=== PATIENT | male | born 1990 | race Two or more races ===

== ENCOUNTER 2024-03-04 09:29 | Emergency (ER) | payer MEDICAID, SELFPAY ==
[2024-03-04 09:56] VITALS: BP 118/73; PULSE 103; RESP 21; TEMP 37; O2SAT 96; BMI 15.3
--- NOTE | 2024-03-04 10:05 | PD.EDRME ---
Rapid Medical Screening Exam RME Arrival date/time: 03/04/24 09:29 34-year-old male on lithium with caregiver at bedside presents emergency department reporting was sent by primary care provider due to abnormal labs. Patient also endorses nausea vomiting and diarrhea since this past Wednesday. Chief Complaint: Nausea/Vomiting/Diarrhea Vital signs: Vital Signs Temperature 98.6 F 03/04/24 09:56 Pulse Rate 103 H 03/04/24 09:56 Respiratory Rate 21 H 03/04/24 09:56 Blood Pressure 118/73 03/04/24 09:56 Pulse Oximetry (%) 96 03/04/24 09:56 Oxygen Delivery Method Room Air 03/04/24 09:56 Vital signs reviewed by provider: Yes
[2024-03-04 10:29] LABS: Basophils % (Auto) 0 % (0-2.5); Eosinophils % (Auto) 0 % (0-10); Hematocrit 39.9 % (41.0-53.0); Hemoglobin 13.5 g/dL (13.5-16.0); Immature Granulocytes % (Auto) 0 % (0-0); Immature Granulocytes Auto 0.03 Thou/mm3 (0.00-0.00); Lymphocytes # (Auto) 0.4 Thou/mm3 (1.0-4.8); Lymphocytes % (Auto) 4 % (10-50); Mean Corpuscular HGB Conc 33.8 g/dl (31.0-37.0); Mean Corpuscular Hemoglobin 31.6 pg (25.0-35.0); Mean Corpuscular Volume 93 fL (80-100); Monocytes # (Auto) 0.6 Thou/mm3 (0.0-0.8); Monocytes % (Auto) 6 % (0-12); Neutrophils # (Auto) 8.1 Thou/mm3 (1.8-7.7); Neutrophils % (Auto) 89 % (37-80); Nucleated Red Blood Cell % 0 /100 WBC (0); Platelet Count 232 Thou/mm3 (140-440); RDW Standard Deviation 45.4 fL (35.1-43.9); Red Blood Count 4.27 Miln/mm3 (4.50-5.90); White Blood Count 9.1 Thou/mm3 (3.8-10.6)
[2024-03-04] MEDS: ONDANSETRON ODT 4 MG TABRAP PO (10:32)
[2024-03-04 10:41] LABS: Alanine Aminotransferase 45 U/L (10-49); Albumin, Serum 4.3 gm/dL (3.5-5.0); Alkaline Phosphatase 82 U/L (46-116); Anion Gap 5 (7-16); Aspartate Amino Transferase 55 U/L (0-34); BUN/Creatinine Ratio 14 Ratio (12-20); Bilirubin,Total 0.6 mg/dL (0.3-1.2); Blood Urea Nitrogen 11 mg/dL (9-23); Calcium 9.6 mg/dL (8.3-10.6); Calcium (Corrected) 9.6 mg/dL (8.5-10.1); Carbon Dioxide 22.7 mMol/L (20.0-31.0); Chloride 107 mMol/L (98-107); Creatinine (Component) 0.8 mg/dL (0.6-1.3); Estimated Creatinine Clearance 75.4 mL/min (>60); Globulin 2.2 gm/dL (2.3-3.5); Glucose 107 mg/dL (74-106); Lipase 31 U/L (12-53); Osmolality,Calculated 269 (275-295); Potassium 3.2 mMol/L (3.4-5.1); Sodium 135 mMol/L (136-145); Total Protein 6.5 gm/dL (5.7-8.2); eGFR > 60 See Note
[2024-03-04 10:47] LABS: Lithium 1.06 mEq/L (1.00-1.20)
[2024-03-04 11:50] VITALS: BP 135/91; PULSE 84; RESP 17; TEMP 36.8; O2SAT 97
[2024-03-04 12:10] LABS: Collection Type, Urine Clean Catch; Squamous Epithelial Cell,Urine 0 /hpf (0-5)
--- NOTE | 2024-03-04 12:17 | PD.EDRECHK ---
ED Recheck Abnl Lab Rx-RME/HPI General Chief Complaint: Nausea/Vomiting/Diarrhea Stated Complaint: DIARRHEA AND VOMITING W/ABNORMAL LABS Time Seen by Provider: 03/04/24 12:12 Arrival date/time: 03/04/24 09:29 RME / HPI RME / HPI narrative: 34-year-old male on lithium with caregiver at bedside presents emergency department reporting was sent by primary care provider due to abnormal labs. Patient also endorses nausea vomiting and diarrhea since this past Wednesday. No fever was noted no abdominal pain was noted no cough was noted no other complaints noted. Denies any ill contacts. Related Data Home Medications ?Medication ?Instructions ?Recorded ?Confirmed clonazepam 1 mg tablet (Klonopin) 1 mg PO 1500 #0 tabs 12/25/14 clonidine HCl 0.1 mg tablet 0.2 mg PO BID #0 tabs 12/25/14 risperidone 1 mg tablet (Risperdal) 2 mg PO TID #0 tabs 12/25/14 divalproex 500 mg tablet,extended 500 mg PO QDAY 01/09/18 release 24 hr mirtazapine 30 mg tablet 30 mg PO QDAY 01/09/18 Previous Rx's ?Medication ?Instructions ?Recorded ondansetron HCl 4 mg tablet 4 mg PO Q8H PRN nausea and 03/04/24 vomiting 5 days #20 tabs Allergies Allergy/AdvReac Type Severity Reaction Status Date / Time No Known Allergies Allergy Verified 03/04/24 09:32 Review of Systems Review of Systems Narrative Review of Systems: Review of system reviewed and within normal limits except mentioned in HPI ED Exam Narrative Physical exam: VITAL SIGNS: Reviewed. GENERAL APPEARANCE: Alert and interactive, follows commands, no acute distress, HEAD AND FACE: Non-traumatic. ENT: PERRL, pink conjunctivitis, eyelid no trauma, Mucous membrane dry NECK: Supple, nontender, no nuchal rigidity. CHEST: No tenderness, no crepitus, no paradoxical movement, no retractions. LUNGS: Clear, well ventilated, symmetric, no rales, no wheezing, no ronchi, no stridor, good breath sounds bilaterally. HEART: Regular rate, regular rhythm, no murmur, no gallops. ABDOMEN: Soft, positive bowel sounds, nondistended, no guarding, nontender, no rebound, no masses, RECTAL: Deferred. GENITAL: Deferred. NEUROLOGICAL: Gross motor function intact sensory function intact, Appropriate for age. MUSCULOSKELETAL: low back nontender, full range of motion. EXTREMITIES: Nontender, full range of motion. SKIN: Color pink, dry, no rash, no lacerations, no abrasions, no contusions. LYMPHATICS: Deferred. Course Quality Measures none Orders Category Date Time Status CBC Stat Lab 03/04/24 10:17 Completed CMP [Comprehensive Metabolic Panel] Stat Lab 03/04/24 10:17 Completed Lipase Stat Lab 03/04/24 10:17 Completed [place] Stat Lab 03/04/24 10:17 Completed Urinalysis, C/S if Indicated Stat Lab 03/04/24 11:52 Completed Urine Culture Stat Lab 03/04/24 11:52 Received Famotidine Inj [Pepcid Inj] Med 03/04/24 12:16 Discontinued 20 mg IVP X1 ONE Metoclopramide Inj [Reglan Inj] Med 03/04/24 12:17 Discontinued 10 mg IVP X1 ONE Ondansetron Odt [Zofran Odt] Med 03/04/24 10:24 Discontinued 4 mg PO X1 ONE Potassium Chloride [K-Dur] Med 03/04/24 12:16 Discontinued 40 meq PO X1 ONE Sodium Chloride 0.9% 1000 ml [Ns] 1,000 ml Med 03/04/24 12:16 Discontinued IV 999 mls/hr Vital Signs Vital signs: Vital Signs Temperature 98.6 F 03/04/24 09:56 Pulse Rate 103 H 03/04/24 09:56 Respiratory Rate 21 H 03/04/24 09:56 Blood Pressure 118/73 03/04/24 09:56 Pulse Oximetry (%) 96 03/04/24 09:56 Oxygen Delivery Method Room Air 03/04/24 09:56 Recheck / Abnormal Lab / Rx MDM Narrative MDM Narrative:: Patient's laboratory workup all came back unremarkable except for potassium 3.2. Potassium replacement was done in the emergency room. Patient also given Pepcid IV, IV fluids for hydration, Reglan and Zofran. Results discussed with them patient and caregiver. Patient was noted to to be vomiting in the ED. Patient is tolerating p.o. fluids Patient data External records reviewed:: None Clinical information provided by:: none Social determinants that could affect healthcare access:: none Patient has the following chronic illnesses:: Seizure disorder, mental disorder How is presenting disease/condition affected by chronic disease/condition?: uneffected by Evaluation data The following diagnostics were reviewed and interpreted by me:: lab results Lab and/or radiology exams considered but not ordered:: None Interpretation Summary: Laboratory workup all came back unremarkable except for potassium of 3.2. [place] level is normal Medications / Prescriptions Medications or Prescriptions considered but not ordered:: None Medication administrations:: Medication Administration History Discontinued Medications Famotidine (Famotidine Inj 10 Mg/Ml Vial 2 Ml) 20 mg IVP X1 ONE Stop: 03/04/24 12:17 Last Admin: 03/04/24 12:52 Dose: 20 mg Documented By: GRACIE Sodium Chloride (Ns) 1,000 mls @ 999 mls/hr IV .Q1H1M ONE Stop: 03/04/24 13:16 Last Admin: 03/04/24 12:53 Dose: 999 mls/hr Documented By: GRACIE Metoclopramide HCl (Metoclopramide Inj 5 Mg/Ml Vial 2 Ml) 10 mg IVP X1 ONE; Protocol Stop: 03/04/24 12:18 Last Admin: 03/04/24 12:53 Dose: 10 mg Documented By: GRACIE Ondansetron HCl (Ondansetron Odt 4 Mg Tabrap) 4 mg PO X1 ONE; Protocol Stop: 03/04/24 10:25 Last Admin: 03/04/24 10:32 Dose: 4 mg Documented By: LEATHA Potassium Chloride (Potassium Chloride 20 Meq Tabcr) 40 meq PO X1 ONE Stop: 03/04/24 12:17 Last Admin: 03/04/24 13:05 Dose: 40 meq Documented By: GRACIE Potassium replacement, Zofran, Reglan, IV fluids and Pepcid Consultations Consultation(s) initiated? (list below): No Diagnosis Recheck Differential Diagnosis: other (Dehydration, nausea and vomiting, gastroenteritis) Most likely diagnosis given after review of the tests above:: Nausea and vomiting Admission Indicated Admission indicated?: not indicated Admission Request Was there a request for admission?: No Disposition Plan Disposition Plan: Discharge Discharge Attestation Discharge Attestation: The patient and all family members were given an opportunity to ask questions and understood the discharge instructions. Discharge instructions specifically effects, indications for sooner follow up or return to the emergency department, and the expected course of current diagnosis. Patient condition: Stable Discharge Plan Plan Patient Disposition: HOME (Self Care) Disposition Comment: stable Prescriptions/Referrals Prescriptions/Med Rec: New ondansetron HCl 4 mg tablet 4 mg PO Q8H PRN (Reason: nausea and vomiting) 5 Days Qty: 20 0RF No Action divalproex 500 mg tablet extended release 24 hr 500 mg PO QDAY mirtazapine 30 mg tablet 30 mg PO QDAY clonidine HCl 0.1 MG tablet 0.2 mg PO BID Qty: 0 clonazepam [Klonopin] 1 MG tablet 1 mg PO 1500 Qty: 0 risperidone [Risperdal] 1 MG tablet 2 mg PO TID Qty: 0 Referrals: Escobar Burgos MD [Primary Care Provider] - In 1 week Problem List Clinical Impression: Nausea & vomiting Patient/Caregiver Discharge Instructions Discharge Activity: activity as tolerated Education Materials: Nausea Vomit Control Additional Instructions: Thank you for the opportunity for serving you today. You are stable for discharged . You are advised to: Follow-up with your PCP in 1 to 2 days Return to ED for worsening of symptoms Increase oral fluids Take medication as prescribed Print Language: Uzbek Stand Alone Forms: Patricia Award Info., Patient Portal Info Letter Attestation Attestation The patient was seen by the midlevel practitioner. I, the co-signing physician, was present during the entire ER visit. While I did not physically examine the patient, I was available for consultation as needed.
[2024-03-04 12:33] LABS: Bilirubin,Urine Negative (Negative); Blood,Urine Negative (Negative); Clarity,Urine Clear (Clear/Hazy); Color,Urine Lt-Yellow (Lt Yel-Yel); Glucose, Urine Negative (Negative); Ketones,Urine Negative (Negative); Leukocyte Esterase,Urine Negative (Negative); Nitrite,Urine Positive (Negative); PH,Urine 6.5 (5.0-7.0); Protein,Urine Negative (Neg - Trace); RBC,Urine 2 /hpf (0-3); Specific Gravity,Urine 1.008 (1.001-1.035); Urobilinogen,Urine Negative mg/dL (0.0-1.0); WBC,Urine 5 /hpf (0-5)
[2024-03-04 12:36] LABS: Bacteria,Urine 1+; Culture Indicated,Urine Yes
[2024-03-04] MEDS: FAMOTIDINE INJ 10 MG/ML VIAL 2 ML 20 MG IVP (12:52)
[2024-03-04] MEDS: SODIUM CHLORIDE 0.9% 1000 ML 1,000 ML 999 ML IV (12:53)
[2024-03-04] MEDS: METOCLOPRAMIDE INJ 5 MG/ML VIAL 2 ML 10 MG IVP (12:53)
[2024-03-04] MEDS: POTASSIUM CHLORIDE 20 mEq TABCR 40 MEQ PO (13:05)
== END 2024-03-04 14:14 | disposition home or self-care (01) ==
PROVIDERS: Emergency Provider Emergency Medicine; PCP Family Medicine
DX: R11.2 Nausea with vomiting, unspecified (principal)
CPT/HCPCS: 36415; 80053; 80178; 81001; 83690; 85025; 87086; 96374; 96375; 99284; J2765; J3490; J7030; Q0162; A9270

== ENCOUNTER 2024-08-11 15:52 | Emergency (ER) | payer MEDICAID, SELFPAY ==
[2024-08-11 16:04] VITALS: BP 104/69; PULSE 80; RESP 20; TEMP 36.6; O2SAT 97
--- NOTE | 2024-08-11 16:09 | XR_ITS ---
Examination: PA lateral chest 2 views Technique: Upright PA lateral chest 2 views Exam date and time: September 10, 2024 1722 hrs. Indications: Chest pain shortness of breath 6 days Findings: Mild pneumonia in the anteromedial segment right lower lobe, best depicted on the lateral view Normal heart size Left lung clear Impression: Early pneumonia anteromedial segment right lower lobe
--- NOTE | 2024-08-11 16:09 | PD.EDRME ---
Rapid Medical Screening Exam RME Arrival date/time: 08/11/24 15:52 34-year-old male presents to the emergency department today with caregiver reports patient has been more fatigued than usual also reports cough congestion and sore throat has recently been on antibiotics for strep throat Chief Complaint: Flu Like Symptoms Vital signs: Vital Signs Temperature 97.9 F 08/11/24 16:04 Pulse Rate 80 08/11/24 16:04 Respiratory Rate 20 08/11/24 16:04 Blood Pressure 104/69 08/11/24 16:04 Pulse Oximetry (%) 97 08/11/24 16:04 Oxygen Delivery Method Room Air 08/11/24 16:04
[2024-08-11 16:34] LABS: Basophils % (Auto) 0 % (0-2.5); Eosinophils # (Auto) 0.1 Thou/mm3 (0.0-0.5); Eosinophils % (Auto) 2 % (0-10); Hematocrit 45.6 % (41.0-53.0); Hemoglobin 15.4 g/dL (13.5-16.0); Immature Granulocytes % (Auto) 0 % (0-0); Immature Granulocytes Auto 0.02 Thou/mm3 (0.00-0.00); Lymphocytes % (Auto) 16 % (10-50); Mean Corpuscular HGB Conc 33.8 g/dl (31.0-37.0); Mean Corpuscular Volume 89 fL (80-100); Monocytes # (Auto) 0.4 Thou/mm3 (0.0-0.8); Monocytes % (Auto) 6 % (0-12); Neutrophils # (Auto) 4.6 Thou/mm3 (1.8-7.7); Neutrophils % (Auto) 76 % (37-80); Nucleated Red Blood Cell % 0 /100 WBC (0); Platelet Count 175 Thou/mm3 (140-440); RDW Standard Deviation 41.9 fL (35.1-43.9); Red Blood Count 5.13 Miln/mm3 (4.50-5.90)
[2024-08-11 16:53] LABS: Alanine Aminotransferase 13 U/L (10-49); Albumin, Serum 4.3 gm/dL (3.5-5.0); Albumin/Globulin Ratio 1.8 (1.2-2.2); Alkaline Phosphatase 85 U/L (46-116); Anion Gap 8 (7-16); Aspartate Amino Transferase 15 U/L (0-34); BUN/Creatinine Ratio 15 Ratio (12-20); Bilirubin,Total 0.2 mg/dL (0.3-1.2); Blood Urea Nitrogen 12 mg/dL (9-23); Calcium 9.2 mg/dL (8.3-10.6); Calcium (Corrected) 9.2 mg/dL (8.5-10.1); Carbon Dioxide 22.7 mMol/L (20.0-31.0); Chloride 112 mMol/L (98-107); Creatinine (Component) 0.8 mg/dL (0.6-1.3); Globulin 2.4 gm/dL (2.3-3.5); Glucose 60 mg/dL (74-106); Osmolality,Calculated 282 (275-295); Potassium 3.6 mMol/L (3.4-5.1); Sodium 143 mMol/L (136-145); Total Protein 6.7 gm/dL (5.7-8.2); eGFR > 60 See Note
[2024-08-11 17:20] LABS: Strep A Rapid Negative (Negative)
[2024-08-11 17:46] LABS: Collection Type, Urine Clean Catch
[2024-08-11 18:00] LABS: Amphetamine/Methamp Scrn,U Negative (Negative); Barbiturate Screen,Urine Negative (Negative); Benzodiazepines Screen,Urine Negative (Negative); Benzoylecgonine Screen, Ur Negative (Negative); Fentanyl Screen,Urine Negative (Negative); Opiate Screen,Urine Negative (Negative); THC Screen,Urine Negative (Negative)
--- NOTE | 2024-08-11 18:23 | PD.EDURI ---
Upper Respiratory Inf. RME/HPI General Chief Complaint: Flu Like Symptoms Stated Complaint: SICK X6 DAYS Time Seen by Provider: 08/11/24 17:53 Arrival date/time: 08/11/24 15:52 RME / HPI RME / HPI Narrative: 34-year-old male presents to the emergency department today with caregiver reports patient has been more fatigued than usual also reports cough congestion and sore throat has recently been on antibiotics for strep throat. Patient was also noted to be coughing more than usual. Denies any other complaints no medication was taken prior to arrival. Related Data Home Medications ?Medication ?Instructions ?Recorded ?Confirmed clonazepam 1 mg tablet (Klonopin) 1 mg PO 1500 #0 tabs 12/25/14 clonidine HCl 0.1 mg tablet 0.2 mg PO BID #0 tabs 12/25/14 risperidone 1 mg tablet (Risperdal) 2 mg PO TID #0 tabs 12/25/14 divalproex 500 mg tablet,extended 500 mg PO QDAY 01/09/18 release 24 hr mirtazapine 30 mg tablet 30 mg PO QDAY 01/09/18 Previous Rx's ?Medication ?Instructions ?Recorded levofloxacin 500 mg tablet 500 mg PO QDAY 7 days #7 tabs 08/11/24 Allergies Allergy/AdvReac Type Severity Reaction Status Date / Time No Known Allergies Allergy Verified 08/11/24 15:54 Review of Systems Review of Systems Narrative Review of Systems: Review of system reviewed and within normal limits except mentioned in HPI ED Exam Narrative Physical exam: VITAL SIGNS: Reviewed. GENERAL APPEARANCE: Alert and interactive, follows commands, no acute distress, HEAD AND FACE: Non-traumatic. ENT: PERRL, pink conjunctivitis, eyelid no trauma, Mucous membrane moist. NECK: Supple, nontender, no nuchal rigidity. CHEST: No tenderness, no crepitus, no paradoxical movement, no retractions. LUNGS: Clear, well ventilated, symmetric, no rales, no wheezing, no ronchi, no stridor, good breath sounds bilaterally. HEART: Regular rate, regular rhythm, no murmur, no gallops. ABDOMEN: Soft, positive bowel sounds, nondistended, no guarding, nontender, no rebound, no masses, RECTAL: Deferred. GENITAL: Deferred. NEUROLOGICAL: Gross motor function intact sensory function intact, Appropriate for age. MUSCULOSKELETAL: low back nontender, full range of motion. EXTREMITIES: Nontender, full range of motion. SKIN: Color pink, dry, no rash, no lacerations, no abrasions, no contusions. LYMPHATICS: Deferred. Course Quality Measures none Orders Category Date Time Status Bedside COVID-19 Antigen Test NOW Care 08/11/24 16:09 Active Bedside Influenza A&B Antigen Test NOW Care 08/11/24 16:09 Completed XR chest 2V Stat Exams 08/11/24 16:09 Completed CBC Stat Lab 08/11/24 16:24 Completed CMP [Comprehensive Metabolic Panel] Stat Lab 08/11/24 16:24 Completed Drug Screen,Urine Stat Lab 08/11/24 17:34 Completed Strep A Rapid Stat Lab 08/11/24 16:13 Completed UA, C/S IF [Urinalysis, C/S if Indicated] Stat Lab 08/11/24 17:33 Received Levofloxacin [Levaquin] Med 08/11/24 18:21 Once 500 mg PO X1 ONE Vital Signs Vital signs: Vital Signs Temperature 97.9 F 08/11/24 16:04 Pulse Rate 80 08/11/24 16:04 Respiratory Rate 20 08/11/24 16:04 Blood Pressure 104/69 08/11/24 16:04 Pulse Oximetry (%) 97 08/11/24 16:04 Oxygen Delivery Method Room Air 08/11/24 16:04 Upper Respiratory Infection MDM Narrative MDM Narrative:: 34-year-old male presents to the emergency department today with caregiver reports patient has been more fatigued than usual also reports cough congestion and sore throat has recently been on antibiotics for strep throat. Patient was also noted to be coughing more than usual. Denies any other complaints no medication was taken prior to arrival. CBC showed no leukocytosis. CMP unremarkable. Tested negative for drug toxicity, blood is strep negative chest x-ray showed Early pneumonia anteromedial segment right lower lobe Patient received Levaquin p.o. in the emergency room. 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 Social determinants that could affect healthcare access:: none Patient has the following chronic illnesses:: Mental retardation How is presenting disease/condition affected by chronic disease/condition?: uneffected by Evaluation data The following diagnostics were reviewed and interpreted by me:: lab results and radiology exam(s) Lab and/or radiology exams considered but not ordered:: None see results [facility] Interpretation Summary: See results in MDM Medications / Prescriptions Medications or Prescriptions considered but not ordered:: None Medication administrations:: Medication Administration History Levofloxacin (Levofloxacin 250 Mg Tablet) 500 mg PO X1 ONE Stop: 08/11/24 18:22 Levaquin Consultations Consultation(s) initiated? (list below): No Diagnosis Upper Respiratory Differential Diagnosis: upper respiratory infection and viral infection Most likely diagnosis given after review of the tests above:: Pneumonia Admission Indicated Admission indicated?: not indicated Explain why admission is indicated or not indicated:: Stable Admission Request Was there a request for admission?: No Disposition Plan Disposition Plan: Discharge Discharge Attestation Discharge Attestation: The patient and all family members were given an opportunity to ask questions and understood the discharge instructions. Discharge instructions specifically effects, indications for sooner follow up or return to the emergency department, and the expected course of current diagnosis. Patient condition: Stable Discharge Plan Plan Patient Disposition: HOME (Self Care) Disposition Comment: Stable Prescriptions/Referrals Prescriptions/Med Rec: New levofloxacin 500 mg tablet 500 mg PO QDAY 7 Days Qty: 7 0RF No Action divalproex 500 mg tablet extended release 24 hr 500 mg PO QDAY mirtazapine 30 mg tablet 30 mg PO QDAY clonidine HCl 0.1 MG tablet 0.2 mg PO BID Qty: 0 clonazepam [Klonopin] 1 MG tablet 1 mg PO 1500 Qty: 0 risperidone [Risperdal] 1 MG tablet 2 mg PO TID Qty: 0 Referrals: Kiana Burgos MD [Primary Care Provider] - In 1 week Problem List Clinical Impression: Pneumonia Patient/Caregiver Discharge Instructions Discharge Activity: activity as tolerated Education Materials: What Is Pneumonia? Additional Instructions: Thank you for the opportunity for serving you today. You are stable for discharged . You are advised to: Follow-up with your PCP in 1 to 2 days Return to ED for worsening of symptoms Increase oral fluids Take medication as prescribed Print Language: Yoruba Stand Alone Forms: Patricia Award Info., Patient Portal Info Letter PA/COMPUTATIONAL SCIENTIST Supervising Physician ROSA/LOULOU Supervising Physician: MD Tiffanie
[2024-08-11 19:09] LABS: Bilirubin,Urine Negative (Negative); Blood,Urine Negative (Negative); Clarity,Urine Clear (Clear/Hazy); Color,Urine Lt-Yellow (Lt Yel-Yel); Glucose, Urine Negative (Negative); Hyaline Casts,Urine 1 /hpf (0-1); Ketones,Urine Negative (Negative); Leukocyte Esterase,Urine Positive (Negative); Nitrite,Urine Negative (Negative); Protein,Urine Negative (Neg - Trace); RBC,Urine 1 /hpf (0-3); Specific Gravity,Urine 1.023 (1.001-1.035); Squamous Epithelial Cell,Urine < 1 /hpf (0-5); Urobilinogen,Urine Negative mg/dL (0.0-1.0); WBC,Urine 16 /hpf (0-5)
[2024-08-11 19:10] LABS: Culture Indicated,Urine Yes
[2024-08-11] MEDS: LEVOFLOXACIN 250 MG TABLET 500 MG PO (19:10)
== END 2024-08-11 19:12 | disposition home or self-care (01) ==
PROVIDERS: Nurse Practitioner Primary Care; Emergency Provider Emergency Medicine; PCP Family Medicine
DX: J18.9 Pneumonia, unspecified organism (principal)
CPT/HCPCS: 36415; 71046; 80053; 80307; 81001; 85025; 87086; 87400; 87651; 87811; 99283; A9270